=== PATIENT | male | born 1990 | race Caucasian/White ===

== ENCOUNTER 2024-03-05 10:10 | Emergency (ER) | payer OTHER ==
[~2024-03-05] VITALS: Ht 177.8 cm; Wt 90.7 kg
[2024-03-05] MEDS: morphine 4 MG/ML inj SYRINge IV ONE ×2 (10:27→11:55)
[2024-03-05] MEDS: ondansetron/PF 4mg/2ml inj IV ONE (10:27)
[2024-03-05] MEDS: normal saline 1000ml 1,000 ML IV ONE (10:27)
[2024-03-05] MEDS ORDERED: iohexol 300mg/ml 100ml inj. ONE (10:31)
[2024-03-05 10:38] LABS: BASOPHILS % (AUTO) 0.4 % (0-1); EOSINOPHILS % (AUTO) 0.3 % (0-6); HEMOGLOBIN 14.9 g/dl (14.0-17.9); LYMPHOCYTES # (AUTO) 1.8 X10'3 (1.1-4.8); LYMPHOCYTES % (AUTO) 13.9 % (21-51); MEAN CORPUSCULAR HEMOGLOBIN 30.9 PG (27.0-31.0); MEAN CORPUSCULAR HGB CONC 33.8 g/dL (33.0-36.5); MEAN CORPUSCULAR VOLUME 91.6 FL (78-98); MEAN PLATELET VOLUME 8.4 FL (7.4-10.4); MONOCYTES # (AUTO) 1.1 X10'3 (0-0.9); MONOCYTES % (AUTO) 8.4 % (2-12); NEUTROPHILS # (AUTO) 10.1 X10'3 (1.8-7.7); PLATELET COUNT 281 X10'3 (140-440); RED CELL DISTRIBUTION WIDTH 12.7 % (11.5-14.5); WHITE BLOOD COUNT 13.1 X10'3 (4.5-11.0)
[2024-03-05 10:46] LABS: ALBUMIN 4.2 G/DL (3.4-5.0); ANION GAP 14 (8-16); BLOOD UREA NITROGEN 10 MG/DL (7-18); BUN/CREATININE RATIO 9.4 (10.0-20.0); CHLORIDE 101 MMOL/L (99-107); CREATININE 1.06 MG/DL (0.60-1.10); GLUCOSE 107 MG/DL (70-104); POTASSIUM 3.9 MMOL/L (3.5-5.1); SODIUM 138 MMOL/L (135-145); TOTAL CARBON DIOXIDE 23.2 MMOL/L (24-32); eCRCL 103 ML/MIN; eGFR 81 ML/MIN
[2024-03-05 11:30] VITALS: TEMP 98.3
[2024-03-05 12:46] VITALS: BP 121/81; PULSE 117; RESP 16; O2SAT 98
[2024-03-05] MEDS ORDERED: CYCL-394 PO (13:19)
[2024-03-05] MEDS ORDERED: IBUP-1984 PO (13:19)
== END 2024-03-05 13:34 | disposition home or self-care (01) ==
LOC: ER 10:11
DX: S06.0XAA Concussion with loss of consciousness status unknown, initial encounter (principal); S80.02XA Contusion of left knee, initial encounter; S80.01XA Contusion of right knee, initial encounter; S70.02XA Contusion of left hip, initial encounter; S83.92XA Sprain of unspecified site of left knee, initial encounter; S83.91XA Sprain of unspecified site of right knee, initial encounter; S73.102A Unspecified sprain of left hip, initial encounter; V29.99XA Rider (driver) (passenger) of other motorcycle injured in unspecified traffic accident, initial encounter; Y93.89 Activity, other specified; Y92.89 Other specified places as the place of occurrence of the external cause; Y99.8 Other external cause status
CPT/HCPCS: 29505; 36415; 70450; 71260; 72125; 73552; 73560; 74177; 80048; 85025; 86885; 86900; 86901; 93005; 96361; 96374; 96375; 96376; 99285; J2270; J2405; J3490; J7030; L0172; Q9967